=== PATIENT | male | born 1960 | race African-American/Black ===

== ENCOUNTER 2018-05-27 20:51 | Emergency (ER) | payer MEDICARE, MEDICAID ==
[~2018-05-27] VITALS: Ht 193 cm; Wt 97.7 kg
[~2018-05-27 20:51] MED LIST: GLIP10TA10; METF-414; NIAC50TA
[2018-05-27 20:54] VITALS: BP 143/87
== END 2018-05-28 01:00 | disposition left against medical advice (07) ==
LOC: ER 20:51
DX: Z53.21 Procedure and treatment not carried out due to patient leaving prior to being seen by health care provider (principal)

== ENCOUNTER 2019-04-28 12:40 | Emergency (ER) | payer MEDICAID, MEDICARE ==
[~2019-04-28] VITALS: Ht 193 cm; Wt 91.0 kg
[2019-04-28] MEDS ORDERED: DEXTROSE 50% WATER 50ML SYRINGE IV ONE ×2 (13:11→13:15)
[2019-04-28 13:36] LABS: BASOPHILS % 0.7 % (0.0-2.0); EOSINOPHILS % 0.4 % (0.0-5.0); HEMATOCRIT. 44.5 % (42.0-52.0); HEMOGLOBIN. 14.9 g/dL (14.0-18.0); LYMPHOCYTES % 16.8 % (20.0-50.0); MEAN CORPUSCULAR VOLUME 95.3 fL (80.0-94.0); MEAN PLATELET VOLUME 9.4 fl (7.4-10.4); MONOCYTES % 7.2 % (2.0-8.0); NEUTROPHILS % 74.9 % (40.0-76.0); PLATELET 195 x1000/uL (130-400); RED BLOOD CELL COUNT 4.67 mill/uL (4.7-6.1); RED CELL DISTRIBUTION WIDTH 14.8 % (11.6-14.6)
[2019-04-28 13:43] LABS: CHLORIDE 109 mEq/L (98-107)
[2019-04-28 13:45] LABS: PROTHROMBIN TIME 10.5 sec (9.6-11.0)
[2019-04-28 13:49] LABS: ETHANOL BLOOD < 10 mg/dL
[2019-04-28 13:51] LABS: LDL CHOLESTEROL 82 mg/dL (5-100)
[2019-04-28] MEDS ORDERED: IPRATROPIUM/ALBUTEROL 0.5-3(2.5)MG/3ML NEB NEB PRN (16:45)
[2019-04-28] MEDS ORDERED: NA PHOS,M-B/NA PHOS,DI-BA ENEMA 118ML PR PRN (16:45)
[2019-04-28] MEDS ORDERED: MAGNESIUM/ALUMINUM HYDROXIDE/SIMETHICONE 30ML UDC PO PRN (16:45)
[2019-04-28] MEDS ORDERED: BLOOD SUGAR DIAGNOSTIC STRIP TEST SCH (16:45)
[2019-04-28] MEDS ORDERED: DEXT 5%/0.45% NACL 1000ML 1,000 ML IV SCH (16:45)
[2019-04-28] MEDS ORDERED: ACETAMINOPHEN 325MG TABLET PO PRN (16:45)
[2019-04-28] MEDS ORDERED: ONDANSETRON HCL 4MG/2ML INJ IV PRN (16:45)
[2019-04-28] MEDS ORDERED: HYDROCODONE/ACETAMINOPHEN 5/325MG TABLET PO PRN (16:45)
[2019-04-28] MEDS ORDERED: DOCUSATE SODIUM 100MG CAPSULE PO PRN (16:45)
[2019-04-28] MEDS ORDERED: ACETAMINOPHEN 650MG SUPP PR PRN (16:45)
[2019-04-28] MEDS ORDERED: DEXTROSE 50% WATER 50ML SYRINGE IV PRN (16:45)
[2019-04-28] MEDS ORDERED: LORAZEPAM 0.5MG TABLET PO PRN (16:45)
[2019-04-28] MEDS ORDERED: CLONIDINE 0.1MG TABLET PO PRN (16:45)
[2019-04-28] MEDS ORDERED: GUAIFENESIN 200MG/10ML SUGAR FREE UDC PO PRN (16:45)
[2019-04-28] MEDS ORDERED: ASPIRIN 81MG TABLET PO SCH (16:45)
[2019-04-28] MEDS ORDERED: DIPHENHYDRAMINE 50MG/ML VIAL IV PRN (16:45)
[2019-04-28 17:05] VITALS: BP 136/80
[2019-04-28] MEDS ORDERED: ATORVASTATIN CALCIUM 10MG TABLET PO SCH (21:00)
== END 2019-04-28 17:25 | disposition home or self-care (01) ==
LOC: ER 12:40 → EDBEDREQTM 16:47 → EDBEDREQSVC 16:47 → EDBEDREQ 16:47 → CANBEDREQ 17:17 → ER 17:25 → SUPCPDRO 17:43
DX: I63.9 Cerebral infarction, unspecified (principal); R41.82 Altered mental status, unspecified; E11.9 Type 2 diabetes mellitus without complications; E78.00 Pure hypercholesterolemia, unspecified; I10 Essential (primary) hypertension; Z86.73 Personal history of transient ischemic attack (TIA), and cerebral infarction without residual deficits
CPT/HCPCS: 36415; 71045; 80320; 82962; 83721; 84484; 93005; 96374; 99284; G0480